=== PATIENT | male | born 1950 | race Caucasian/White ===

== ENCOUNTER → 2016-12-13 | Outpatient (CLI) | payer OTHER ==
[~2016-12-13] MED LIST: ACET-1138 PO; ACET-1311 PO; ASPEC325 PO; ASPI81TA28 PO; IBUP-103 PO; MELO7.5T5 PO; MISCCAP80 PO; MORP15TA19 PO; MULT-506 PO; PRAV20TA PO; PSYL55.43 PO; RXC5 PO
== END | disposition home or self-care (01) ==
LOC: C.LAB 14:32
PROVIDERS: ATTEND Orthopaedic Surgery Sports Medicine
DX: Z01.818 Encounter for other preprocedural examination (principal)

== ENCOUNTER 2017-01-08 09:48 | Inpatient (IN) | payer OTHER ==
[2016-12-13 15:43] LABS: BASO % 0.6 %; BASO ABS # 0.04 K/uL (0-0.2); COMPLETE YES; IG% 0.3 %; LYMPH % 25.7 %; LYMPH ABS # 1.76 K/uL (1.2-3.4); MEAN CELL VOLUME 84.6 fL (80-100); MEAN CORPUSCULAR HEMOGLOBIN 28.9 pg (25-34); MEAN CORPUSCULAR HGB CONC 34.2 g/dl (32-36); MEAN PLATELET VOLUME 10.3 fL (7.4-10.4); MONO % 9.6 %; NEUT % 62.8 %; PLATELET COUNT 246 K/uL (130-400); RED BLOOD COUNT 5.08 M/uL (4.7-6.1); WHITE BLOOD COUNT 6.85 K/uL (4.8-10.8)
[2016-12-13 15:58] LABS: PARTIAL THROMBOPLASTIN RATIO 0.9; PROTHROMBIN TIME (PATIENT) 10.7 SECONDS (9.0-12.0)
[2016-12-13 15:59] LABS: BLOOD UREA NITROGEN 16 mg/dl (7-18); BUN/CREATININE RATIO 17.7 (10-20); CALCIUM 8.9 mg/dl (8.5-10.1); CARBON DIOXIDE 28 mmol/L (21-32); CHLORIDE 104 mmol/L (98-107); CREATININE 0.93 mg/dl (0.60-1.40); GLUCOSE 98 mg/dl (70-99); POTASSIUM 4.4 mmol/L (3.5-5.1); SODIUM 140 mmol/L (136-145)
[2016-12-13 16:00] LABS: C-REACTIVE PROTEIN < 0.29 mg/dl (0-0.29)
[2016-12-28 15:23] VITALS: BMI 26.0
--- NOTE | 2017-01-02 10:12 | HISTORY & PHYSICAL EXAMINATION ---
DATE OF ADMISSION: 01/08/2017 CHIEF COMPLAINT: Left knee pain. HISTORY OF PRESENT ILLNESS: This is a 66-year-old gentleman now about 4 months out from his right knee replacement and would like to proceed with left knee replaced. He has got a long history of bilateral knee pain and discomfort. His right knee is doing well. Pain is much improved. Left knee is really limiting his activities. She describes global pain, increased with weightbearing. He has pain mostly on the medial side of his knee. He would like to proceed with left knee replacement. PAST MEDICAL HISTORY: Significant for: 1. Basal cell skin cancer. 2. Elevated cholesterol. 3. Knee arthritis. PAST SURGICAL HISTORY: 1. Right knee arthroscopy. 2. Right total knee replacement August 2016. ALLERGIES: None. CURRENT MEDICATIONS: Include: 1. Pravastatin 2. Baby Aspirin. 3. Multivitamin. 4. Meloxicam. 5. Desonide. SOCIAL HISTORY: A 66-year-old male. He is . From [place]. Two children. FAMILY HISTORY: Noncontributory. REVIEW OF SYSTEMS: Negative for diabetes, neurologic problems, vascular problems, bleeding disorders. Denies any chest pain, no shortness of breath. No history of DVT or PE. PHYSICAL EXAMINATION: GENERAL: Reveals a pleasant, middle-aged male. He looks to be in excellent health. HEAD, EYES, EARS, NOSE, AND THROAT EXAMINATION: Benign. NECK: Supple. No lymphadenopathy. LUNGS: Clear to auscultation. HEART: Regular rate and rhythm. ABDOMEN: Soft, nontender, nondistended. EXTREMITY EXAMINATION: Grossly neurovascularly intact except as follows: Examination of both knees reveals the patient walks independently. Examination of the right knee reveals well-healed incision. Appears to be minimal swelling. Good straight leg raise. Range of motion 0-125. No instability. Examination of the left knee reveals varus alignment to his knee. He has got bony hypertrophy medially. Small knee effusion. Range of motion is 5-120. No instability. X-RAYS: X-rays of his left knee reveal advanced left knee DJD. He has got complete loss of his medial joint space. He has got osteophytes in the medial femoral condyle and medial tibial plateau. He has got subchondral sclerosis. ASSESSMENT: A 66-year-old gentleman 4 months out from right total knee replacement with advanced left knee degenerative joint disease. He has failed conservative treatment and would like to have his left knee replaced. PLAN: We are going to take him to the operating room and do a left total knee replacement. The risks and benefits of this procedure were explained to the patient including but not limited to DVT, PE, , infection, neurologic injury, vascular injury, bleeding problem, pain, limited range of motion, stiffness, failure to relieve symptoms, incomplete relief of symptoms, need for further surgery in the future, fracture, leg length inequality, nerve palsy, etc. The patient understands and desires to proceed. Informed consent was obtained. The patient did have a chest x-ray before his previous surgery which was normal. EKG showed some sinus bradycardia with right axis deviation unchanged from 2008. Labs were all normal. He does know to hold his Mobic 10 days preop. He is planning to be discharged to home using [facility] home health program. I will see him back 2 weeks postop.
[2017-01-08] VITALS (7 sets, daily range): BP systolic 104–149; BP diastolic 60–85; PULSE 49–94; TEMP 36.3–36.9; O2SAT 95–98; Ht 177.8 cm; Wt 82.3 kg
[~2017-01-08] VITALS: Ht 177.8 cm; Wt 82.3 kg
[~2017-01-08 09:48] MED LIST changes: -ACET-1138 PO; +ACETAMINOPHEN 500 MG TAB PO SCH; -ASPEC325 PO; +BUPIVACAINE 0.5 % 5 MG/1 ML PF 10ML VIAL ONE; +BUPIVACAINE LIPOSOME 266 MG, BUPIVACAINE/EPINEPHRINE INJ 50 ML, SODIUM CHLORIDE 0.9% PF... INFIL SCH; +BUPIVACAINE/EPINEPHRINE 0.25% 1:200,000 30 ML VIAL ONE; +CEFAZOLIN 2000 MG/60 ML D5W 60 ML IV SCH; +DEXAMETHASONE SOD INJ 4 MG/ML VIAL ONE; +FAMOTIDINE 20 MG TAB PO SCH; +FENTANYL CITRATE INJ 50 MCG/1 ML 2 ML VIAL ONE; +GABAPENTIN 300 MG CAP PO SCH; +LACTATED RINGER'S 1000ML IV SCH; +LACTATED RINGER'S 500 ML IV SCH; +METOCLOPRAMIDE HCL 10 MG TAB PO SCH; +MIDAZOLAM HCL 1 MG/ML 2ML VIAL ONE; -MORP15TA19 PO; -MULT-506 PO; -RXC5 PO; +SCOPOLAMINE 1.5 MG TDSY TD SCH; +TRANEXAMIC ACID INJ 1,000 MG in SODIUM CHLORIDE 0.9% 100ML 100 ML IV SCH
--- NOTE | 2017-01-08 10:17 | History & Physical Bridge Note ---
H&P Re-Evaluation Bridge Note: I have examined the patient, reviewed the History & Physical and in the interval since the performance of the History & Physical I have noted the following changes of clinical significance: No changes noted
[2017-01-08] MEDS ORDERED: BUPIVACAINE/EPINEPHRINE 0.25% 1:200,000 30 ML VIAL ONE (10:26)
[2017-01-08] MEDS ORDERED: SODIUM CHLORIDE 0.9% PF 50 ML VIAL ONE (10:26)
[2017-01-08] MEDS ORDERED: BUPIVACAINE LIPOSOME 1/3% 266 MG/20 ML VIAL INFIL ONE (10:26)
[2017-01-08] MEDS ORDERED: BACITRACIN 50000 UNIT VIAL ONE (10:26)
[2017-01-08] MEDS ORDERED: ATROPINE SULFATE 0.1 MG/ML 5ML SYR IV PRN (11:00)
[2017-01-08] MEDS ORDERED: FENTANYL CITRATE INJ 50 MCG/1 ML 2 ML VIAL IV PRN (11:00)
[2017-01-08] MEDS ORDERED: EpHEDrine SULFATE INJ 50 MG/ML AMP IV PRN (11:00)
[2017-01-08] MEDS ORDERED: ONDANSETRON INJ 2 MG/ML 2 ML VIAL IV PRN ×2 (11:00→14:00)
[2017-01-08] MEDS ORDERED: PROPOFOL IV EMULSION 10 MG/ML 20 ML VIAL IV ONE (12:08)
--- NOTE | 2017-01-08 13:46 | [facility] Post Operative Brief Note ---
Immediate Operative Summary Operative Date Jan 08, 2017. Pre-Operative Diagnosis Advanced left knee degenerative joint disease Post-Operative Diagnosis Same as pre-operative diagnosis Procedure(s) Performed Left Total Knee Arthroplasty, Cemented Surgeon Dr. Messi Ventura Cloth Neutralizer Surgeon(s) Juan Schulte PA-C Estimated Blood Loss 50ml Findings Left Knee DJD Specimens A: Left knee bone and tissue Drains None Anesthesia Spinal Complication(s) None Disposition Recovery Room / PACU
[2017-01-08] MEDS ORDERED: MoRPHine SULFATE 2 MG/ML CARP IV PRN (14:00)
[2017-01-08] MEDS ORDERED: MAGNESIUM HYDROXIDE SUSP 30 ML UDC PO PRN (14:00)
[2017-01-08] MEDS ORDERED: ZOLPIDEM TARTRATE 5 MG TAB PO PRN (14:00)
[2017-01-08] MEDS ORDERED: BISACODYL 10 MG SUPP PR PRN (14:00)
[2017-01-08] MEDS ORDERED: METOCLOPRAMIDE HCL INJ 5 MG/ML 2 ML VIAL IV PRN (14:00)
[2017-01-08] MEDS ORDERED: TAMSULOSIN HCL 0.4 MG CAP PO PRN (14:00)
[2017-01-08] MEDS ORDERED: ALUMINUM/MAGNESIUM/SIMETH (MAALOX MAX) 30 ML UDC PO PRN (14:00)
[2017-01-08] MEDS ORDERED: OXYCODONE HCL IR 5 MG TAB (IMMEDIATE RELEASE) PO PRN (14:00)
[2017-01-08] MEDS ORDERED: SILVER SULFADIAZINE 1% CR 50 GM JAR EXT PRN (14:00)
[2017-01-08] MEDS ORDERED: DiphenhydrAMINE HCL 50 MG/ML VIAL IV PRN (14:00)
--- NOTE | 2017-01-08 14:24 | OPERATIVE REPORT ---
DATE OF OPERATION: 01/08/2017 PREOPERATIVE DIAGNOSIS: Left knee degenerative joint disease. POSTOPERATIVE DIAGNOSIS: Same. PROCEDURE PERFORMED: Left cemented posterior stabilized total knee arthroplasty. SURGEON: Dr. Messi Ventura. AIRCRAFT MAINTENANCE TECHNICIAN: Jeronimo Schulte PA-C. COMPLICATIONS: None. ESTIMATED BLOOD LOSS: 50 mL. FLUID REPLACEMENT: 600 mL crystalloid fluid replacement. ANESTHESIA: Spinal with adductor canal block. DRAINS: None. SPECIMENS: Left knee sent for pathology. TOURNIQUET TIME: 57 minutes at 300 mmHg. OPERATIVE INDICATIONS: The patient is a 66-year-old very active gentleman who has a long history of bilateral knee pain and discomfort. He had failed conservative care. He underwent a right knee replacement about 5 months ago and has done extremely well from this. He continues to be limited by left knee pain. He would like to proceed with left total knee arthroplasty. OPERATIVE FINDINGS: Operative findings revealed advanced left knee DJD. He had grade 4 [id number]-[id number] disease in all 3 compartments, most severe in the medial and patellofemoral compartments. He had eburnation medial femoral condyle. He had large osteophytes in the medial side of his knee. Large knee joint effusion with a fixed varus deformity to his knee. OPERATIVE IMPLANTS: Operative implants consist of: 1. Biomet Vanguard size 70 left posterior stabilized femoral component. 2. Biomet size 75 tibial tray. 3. A 12 mm posterior stabilized polyethylene insert. 4. A 31 x 8 all poly patella. OPERATION PROCEDURE: The patient was taken to the operating room, identified and placed on the operating table in supine position. All contact areas were appropriately padded. IV antibiotics were provided by anesthesia team. A spinal anesthetic and adductor canal block had been provided in the holding area. A García catheter was placed in sterile fashion. A left thigh tourniquet was then placed and the left lower extremity was then prepped and draped in usual sterile fashion. The left lower extremity was then elevated and exsanguinated with use of an Esmarch and tourniquet was placed at 300 mmHg. An anterior approach of the left knee was then performed through a longitudinal incision centered over the patella. Sharp dissection was carried down through the subcutaneous tissues down with the extensor mechanism. A medial parapatellar arthrotomy incision was made. Some subperiosteal dissection was carried out medially. I did pretty extensive dissection medially due to his fixed varus deformity to release the medial side. The fat pad was resected from beneath the patellar tendon. The lateral patellofemoral ligament was released. The patella was everted and the knee was flexed. The osteophytes were taken off the distal femur. The ACL and PCL were then released from the distal femur and the tibia subluxated anteriorly. The external tibial alignment jig was then placed in the anterior face of the tibia and adjusted 16 mm medially. The proximal tibial cut was made to remove about a millimeter bone from the most deficient aspect of the medial and posteromedial tibial plateau. Tibia was sized to a size 75. Some osteophytes were taken off medial and posteromedially. Attention was then drawn to the femur. The distal femur was entered with a sharp drill. Intramedullary canal was suctioned. A left 6 degree valgus cutting guide was placed and the distal femoral cutting block was pinned in place. Distal femoral cut was made to take an additional 3 mm of bone off the distal femur. The femur was then sized to a size 70. We did downsize this slightly. The AP cutting block was pinned parallel to the epicondylar axis, which was 60 degrees of external rotation. He had a fairly large medial femoral condyle relative to the lateral side. The anterior cut, anterior chamfer cut, posterior cut, posterior chamfer cuts were made. Box cutting guide was placed and adjusted slightly laterally and the box cut was made. The knee was flexed. The remnants of the medial and lateral menisci were excised. The osteophytes were taken off the posterior aspect of the femur. Trial femoral component was placed. Tibial tray was pinned in maximum external rotation and drill and stem punch were used to create defect in proximal tibia for the tibial tray. The knee was then trialed and the 12 mm insert fit most appropriately. Attention was then drawn to the patella. The patella was cleaned of all soft tissues. The patella thickness measured 25 mm and was cut down to 15. It was sized to a size 31 patella. Lateral osteophyte was removed. Patella button was placed. The knee was taken through range of motion. Patella tracked nicely with the no thumbs test. Attention was then drawn toward placement of the permanent components. All trial components were removed. Bone plug was placed in the distal femur to limit blood loss. A double batch of Palacos G cement was mixed. A left size 70 posterior stabilized femoral component, size 75 tibial tray, a 12 mm posterior stabilized polyethylene insert, and a 31 x 8 all poly patella were then cemented in place. The knee was brought out into full extension until the cement hardened. A final cement check was then performed. The pericapsular tissues were injected with 100 mL of a combination of 20 mL Exparel, 30 mL normal saline, 50 mL of 0.25% Marcaine with epinephrine. The patient did receive 1 gram of tranexamic acid. The tourniquet was let down for final tourniquet time of 57 minutes. Hemostasis was assured with use of electrocautery. The wound was once again irrigated. The extensor mechanism was then closed with a combination of #1 PDS and #1 Vicryl suture in a [id number] fashion. Extensor mechanism was checked and found to be intact. The subcutaneous tissues were then closed with 2-0 Dexon suture in a buried interrupted fashion. Skin was closed with skin lilian. The leg was then cleaned and dried and a sterile dressing of Xeroform, 4 x 4s, sterile cast padding and Santosh bandage were applied. The patient was then transferred to the recovery room in stable condition. The patient tolerated the procedure well with no complication. All needle and sponge counts were correct at the end of the operation. I attest to the content of the Intraoperative Record and any orders documented therein. Any exceptio ns are noted below.
--- NOTE | 2017-01-08 15:02 | DIAGNOSTIC IMAGING REPORT ---
LEFT KNEE 2 VIEWS History: Left total knee arthroplasty. Degenerative arthritis. Postop. FINDINGS: The patient is status post a left total knee arthroplasty. The hardware is intact. No fracture or dislocation. Skin lilian are in place. IMPRESSION: Left total knee arthroplasty. No evidence for hardware complication. Electronically signed by: Raghu Torres M.D. 01/08/2017 3:00 PM Dictated Date/Time: 01/08/2017 3:00 PM
[2017-01-08] MEDS: CHECK SCOPOLAMINE PATCH PLACEMENT SCH ×2 (15:22→23:34)
[2017-01-08] MEDS: D5W AND 1/2NSS + 20MEQ KCL 1,000 ML IV SCH ×2 (16:00→23:34)
[2017-01-08] MEDS: KETOROLAC TROMETHAMINE 15 MG/ML VIAL IV. SCH ×2 (16:01→21:41)
--- NOTE | 2017-01-08 16:22 | Anesthesiology Progress Note ---
Anesthesia Post Op Note Date & Time Jan 08, 2017 at 16:23 Vital Signs Pain Intensity: 0.0 Vital Signs Past 12 Hours Date Time Temp Pulse Resp B/P Pulse Ox O2 Delivery O2 Flow Rate FiO2 01/08/17 15:57 36.3 94 16 128/77 96 Nasal Cannula 2.0 01/08/17 15:25 36.4 60 16 120/75 97 Nasal Cannula 2.0 01/08/17 15:23 Nasal Cannula 2.0 01/08/17 14:50 Nasal Cannula 2.0 01/08/17 14:50 36.4 54 14 104/60 95 Nasal Cannula 2.0 01/08/17 14:30 53 14 100/49 98 Nasal Cannula 2 01/08/17 14:20 36.8 54 21 110/63 97 Nasal Cannula 2 01/08/17 14:10 58 14 102/63 95 Nasal Cannula 2 01/08/17 14:00 65 21 99/59 97 Nasal Cannula 2 01/08/17 13:52 36.0 63 19 118/61 94 Nasal Cannula 2 01/08/17 10:10 36.8 64 18 149/83 97 Room Air Notes Mental Status: alert / awake / arousable, participated in evaluation Pt Amnestic to Procedure: Yes Nausea / Vomiting: adequately controlled Pain: adequately controlled Airway Patency, RR, SpO2: stable & adequate BP & HR: stable & adequate Hydration State: stable & adequate Neuraxial Anesthesia: was administered, sensory block is resolving Anesthetic Complications: no major complications apparent
[2017-01-08] MEDS: FERROUS GLUCONATE 324 MG TAB PO SCH (18:25)
[2017-01-08] MEDS ORDERED: TRANEXAMIC ACID INJ 1,000 MG in SODIUM CHLORIDE 0.9% 100ML 100 ML IV SCH (20:00)
[2017-01-08] MEDS: CEFAZOLIN IV 2,000 MG in DEXTROSE 5% 50ML 50 ML IV SCH (20:10)
[2017-01-08] MEDS: DOCUSATE SODIUM 100 MG CAP PO SCH (20:54)
[2017-01-08] MEDS: PRAVASTATIN SOD 40 MG TAB PO SCH (20:54)
[2017-01-08] MEDS: ASPIRIN 325 MG ECTAB PO SCH (20:54)
[2017-01-08] MEDS: TAPENTADOL ER 50 MG TABCR PO SCH (20:54)
[2017-01-08] MEDS: ACETAMINOPHEN 500 MG TAB PO SCH (21:41)
[2017-01-09 03:20] VITALS: BP 104/72; PULSE 56; TEMP 36.4; O2SAT 95
[2017-01-09] MEDS: CEFAZOLIN IV 2,000 MG in DEXTROSE 5% 50ML 50 ML IV SCH (03:40)
[2017-01-09] MEDS: KETOROLAC TROMETHAMINE 15 MG/ML VIAL IV. SCH ×4 (03:40→21:11)
[2017-01-09 05:56] LABS: MEAN CELL VOLUME 84.5 fL (80-100); MEAN CORPUSCULAR HEMOGLOBIN 29.6 pg (25-34); PLATELET COUNT 197 K/uL (130-400); RED BLOOD COUNT 4.26 M/uL (4.7-6.1); WHITE BLOOD COUNT 10.61 K/uL (4.8-10.8)
[2017-01-09] MEDS: ACETAMINOPHEN 500 MG TAB PO SCH ×3 (05:56→21:13)
[2017-01-09 06:21] LABS: BUN/CREATININE RATIO 12.8 (10-20); CALCIUM 8.3 mg/dl (8.5-10.1); CREATININE 0.96 mg/dl (0.60-1.40); POTASSIUM 4.4 mmol/L (3.5-5.1)
[2017-01-09 07:35] VITALS: BP 122/82; PULSE 52; TEMP 36.4; O2SAT 94
[2017-01-09] MEDS: CHECK SCOPOLAMINE PATCH PLACEMENT SCH ×3 (07:57→23:45)
[2017-01-09] MEDS: D5W AND 1/2NSS + 20MEQ KCL 1,000 ML IV SCH (07:57)
[2017-01-09] MEDS: DOCUSATE SODIUM 100 MG CAP PO SCH ×2 (08:25→21:07)
[2017-01-09] MEDS: FERROUS GLUCONATE 324 MG TAB PO SCH ×3 (08:25→18:50)
[2017-01-09] MEDS: ASPIRIN 325 MG ECTAB PO SCH ×2 (08:26→21:07)
[2017-01-09] MEDS: MULTIVITAMIN TAB PO SCH (08:26)
[2017-01-09] MEDS: PANTOprazole SOD 40 MG TAB PO SCH (08:26)
[2017-01-09] MEDS: LACTOBACILLUS ACIDOPHILUS (FLORANEX) TAB PO SCH (08:26)
[2017-01-09] MEDS: PSYLLIUM 58.6% PWD PACK S\\F PO SCH (08:27)
[2017-01-09] MEDS ORDERED: MORP15TA19 PO (08:28)
[2017-01-09] MEDS ORDERED: ASPEC325 PO (08:28)
[2017-01-09] MEDS ORDERED: ACET-1138 PO (08:28)
[2017-01-09] MEDS ORDERED: RXC5 PO (08:28)
[2017-01-09] MEDS: TAPENTADOL ER 50 MG TABCR PO SCH ×2 (08:30→21:10)
--- NOTE | 2017-01-09 08:30 | Discharge Instructions ---
Discharge Instructions Date of Service Jan 09, 2017. Admission Reason for Admission: Left Knee Degenerative Joint Disease Discharge Discharge Diagnosis / Problem: Left Knee Replacement Discharge Goals Goal(s): Decrease discomfort, Improve function, Increase independence, Improve disease control, Therapeutic intervention Activity Recommendations Activity Limitations: per Instructions/Follow-up section Weightbearing Status: Left weightbearing . Instructions / Follow-Up Instructions / Follow-Up ACTIVITY RECOMMENDATIONS: Physical Therapy: * You will go to physical therapy three times each week for four to six weeks after your surgery in order to regain your knee range of motion and to retrain your knee to work properly. * It is just as important to make sure you are getting your knee perfectly straight as it is to regain your knee bend. * Taking a pain pill an hour before therapy can help you have a more productive and comfortable therapy session. Home Exercise: * You were shown a series of exercises (heel props, heel slides, etc.) in the hospital. Do these exercises three to four times each day including the exercises you were shown in physical therapy. Walking: * Get up and walk several times each day. For the first four weeks, try not to stand or walk for more than one hour at a time. If you do stand or walk for more than one hour, you will not hurt anything, but your knee and leg will likely swell. * As you feel comfortable, you may change from the walker or crutches to a cane and then to independent walking. MEDICATIONS: New Medicine: * You will likely be taking one or more of these medications: 1. MS Contin - A long-acting pain medication. Take 1 tablet twice a day for the first ten days to decrease your baseline level of pain. 2. Oxycodone - A quick and shorter-acting pain medication. Take one to two tablets every four to six hours to lessen your pain. 3. Aspirin - Thins your blood to lessen the chance of forming a blood clot. * The most common side effects of pain medicine and iron are nausea and constipation. If nausea or constipation is too much of a problem or if you have any questions about your new medicines or doses, call [facility] at . We will try to help you manage these issues. VERY IMPORTANT TO READ AND REVIEW" Pain: * The immediate post-operative period after knee replacement surgery is often quite painful. * You are given a prescription for pain medicine. You should take it, as directed, when you need it, especially before physical therapy and before going to bed. Pain that interferes with sleep is very common and can last several months. * You will likely need pain medicine for the first four to six weeks. It will not stop all of the pain. The pain will lessen and as you feel better, you may change to milder pain medicine such as Tylenol. * The most common side effects of pain medicine are nausea and constipation, so don't take more than you need. SPECIAL CARE INSTRUCTIONS: TEDs/Elastic Stockings: * The white elastic stockings help limit swelling and prevent blood clots from forming in your legs. The more you wear them, the more they work. * Wear them for six weeks after knee replacement surgery and four weeks after partial knee replacement. Prevention of Infection: * Take antibiotics one hour before any dental cleaning, dental work, urological procedure, gastrointestinal procedure or any invasive surgery in order to prevent your new joint from getting infected. * You may get the antibiotics from the doctor performing the procedure or you may call our office at before and we will call in a prescription to the pharmacy of your choice. Things to Watch For: * Drainage from the incision site that occurs more than one week after your surgery. * Severely increased knee/leg pain or swelling. * Increased redness at the incision site. * Fever above 102 degrees Fahrenheit. * Unusual chest pain or shortness of breath. * Unusual pain or burning with urination. Call [facility] at with any of the above problems or if you have any questions about your medicines or recovery. FOLLOW UP VISIT: Make an appointment to see your doctor for approximately two weeks after surgery for a progress check and staple removal by calling the office at . Current Hospital Diet Patient's current hospital diet: Regular Diet Discharge Diet Recommended Diet: Regular Diet Procedures Procedures Performed: Left Total Knee Arthroplasty, Cemented Pending Studies Studies pending at discharge: no Medical Emergencies . Who to Call and When: Medical Emergencies: If at any time you feel your situation is an emergency, please call [phone] immediately. . Non-Emergent Contact Non-Emergency issues call your: Surgeon . "Provider Documentation" section prepared by Messi Ventura. VTE Core Measure Inpt VTE Proph given/why not?: Other Anticoagulation, T.E.D. Stockings, SCD's
--- NOTE | 2017-01-09 08:38 | Anesthesiology Progress Note ---
Anesthesia Post Op Note Date & Time Jan 09, 2017 at 08:37 Vital Signs Pain Intensity: 0.0 Vital Signs Past 12 Hours Date Time Temp Pulse Resp B/P Pulse Ox O2 Delivery O2 Flow Rate FiO2 01/09/17 07:35 36.4 52 20 122/82 94 Room Air 01/09/17 07:30 Room Air 01/09/17 03:20 36.4 56 16 104/72 95 Room Air 01/08/17 23:10 36.3 53 16 115/66 95 Room Air Notes Mental Status: alert / awake / arousable, participated in evaluation Pt Amnestic to Procedure: Yes Nausea / Vomiting: adequately controlled Pain: adequately controlled Airway Patency, RR, SpO2: stable & adequate BP & HR: stable & adequate Hydration State: stable & adequate Neuraxial Anesthesia: sensory block resolved Anesthetic Complications: no major complications apparent
[2017-01-09 10:29] VITALS: O2SAT 94
[2017-01-09 11:59] VITALS: BP 146/88; PULSE 60; TEMP 36.5; O2SAT 98
--- NOTE | 2017-01-09 12:16 | PROGRESS NOTE ---
DATE: 01/09/2017 SUBJECTIVE: 66-year-old gentleman postop day #1 from a left knee replacement. He is doing well. He rates his pain at worst at a 3/10. No chest pain or shortness of breath. Not feeling dizzy or lightheaded. OBJECTIVE: VITAL SIGNS: Temperature 36.5. Vital signs stable. PHYSICAL EXAMINATION: GENERAL: Reveals a healthy, pleasant, middle-aged male. He is sitting in a bedside chair eating lunch. He looks comfortable. LUNGS: Clear to auscultation. HEART: Regular rate and rhythm. ABDOMEN: Soft, nontender, nondistended. EXTREMITIES: Grossly neurovascularly intact except as follows: Examination of the left lower extremity reveals the dressing to be in place. Slight bit of bloody drainage. He can dorsiflex and plantarflex his foot appropriately. He is neurologically intact. LABORATORY DATA: Hemoglobin 12.6, hematocrit 36.0. Electrolytes are stable. ASSESSMENT: 66-year-old gentleman postop day #1 from left knee replacement, doing well. His pain is controlled. He is neurologically intact. PLAN: 1. DVT prophylaxis including thigh-high TEDs, SCDs, and aspirin twice a day. 2. PT/OT. Weightbearing as tolerated. Left total knee protocol. 3. Pain control. Doing well with current pain regimen. 4. Disposition: Plan to discharge to home with some home health once adequately recovered.
[2017-01-09 15:15] VITALS: BP 157/74; PULSE 68; TEMP 36.4; O2SAT 97
[2017-01-09] MEDS: PRAVASTATIN SOD 40 MG TAB PO SCH (22:30)
[2017-01-09 23:00] VITALS: BP 135/76; PULSE 63; TEMP 36.7; O2SAT 95
[2017-01-10] MEDS: KETOROLAC TROMETHAMINE 15 MG/ML VIAL IV. SCH (03:44)
[2017-01-10] MEDS: ACETAMINOPHEN 500 MG TAB PO SCH (05:34)
[2017-01-10 06:21] VITALS: BP 124/73; PULSE 57; TEMP 36.5; O2SAT 96
[2017-01-10] MEDS: LACTOBACILLUS ACIDOPHILUS (FLORANEX) TAB PO SCH (07:09)
[2017-01-10] MEDS: TAPENTADOL ER 50 MG TABCR PO SCH (07:09)
[2017-01-10] MEDS: PSYLLIUM 58.6% PWD PACK S\\F PO SCH (07:09)
[2017-01-10] MEDS: FERROUS GLUCONATE 324 MG TAB PO SCH (07:09)
[2017-01-10] MEDS: MULTIVITAMIN TAB PO SCH (07:09)
[2017-01-10] MEDS: PANTOprazole SOD 40 MG TAB PO SCH (07:10)
--- NOTE | 2017-01-10 07:36 | PROGRESS NOTE ---
DATE: 01/10/2017 SUBJECTIVE: A 66-year-old gentleman postop day 2 from a knee replacement. He is doing well. Pain is controlled. No chest pain or shortness of breath. Not feeling dizzy or lightheaded. OBJECTIVE: VITAL SIGNS: Temperature is 36.5. Vital signs stable. GENERAL: Healthy, pleasant middle-aged male. He is sitting up in his bedside chair eating breakfast. Looks comfortable. LUNGS: Clear to auscultation. HEART: Regular rate and rhythm. ABDOMEN: Soft, nontender, nondistended. EXTREMITIES: Grossly neurovascularly intact except as follows: Examination of the left lower extremity reveals the dressing to be clean, dry and intact. Fairly minimal swelling. He is neurologically intact. ASSESSMENT: A 66-year-old gentleman postop day 2 from a left knee replacement, doing well. Pain is controlled. PLAN: 1. DVT prophylaxis including thigh-high TEDs, SCDs, and aspirin twice a day. 2. PT/OT. Weightbearing as tolerated. Left total knee protocol. 3. Pain control, doing well with current pain regimen. 4. Disposition: Plan to discharge to home with home health after therapy today.
[2017-01-10 09:03] VITALS: BP 124/73; PULSE 57; TEMP 36.5; O2SAT 96
[2017-01-10] MEDS: ASPIRIN 325 MG ECTAB PO SCH (09:12)
[2017-01-10] MEDS: DOCUSATE SODIUM 100 MG CAP PO SCH (09:12)
--- NOTE | 2017-01-16 15:39 | DISCHARGE SUMMARY ---
ADMITTING PHYSICIAN AND SURGEON: Dr. Ventura. ADMITTING DIAGNOSIS: Left knee degenerative joint disease. SURGERY PERFORMED: Left total knee arthroplasty. SECONDARY DIAGNOSES: Includes basal cell skin cancer, elevated cholesterol, knee arthritis. HISTORY AND PHYSICAL EXAMINATION: Well documented in the patient's chart. HOSPITAL COURSE: The patient was admitted on 01/08/2017 underwent total knee arthroplasty. He tolerated the procedure well. There were no complications. He was transferred to the PACU postoperatively and later to the orthopedic floor for further care. He was given Ancef for antibiotic prophylaxis, TYREE stockings, SCDs and aspirin for DVT prophylaxis. Hemoglobin, hematocrit and vital signs were monitored during his hospital stay and remained stable, did not require any blood transfusions. There were no complications. By postoperative day 2, he was tolerating a general diet, pain was controlled with oral pain medicine. He was participating in physical therapy and had no signs or symptoms of deep vein thrombosis. On postoperative day 2, he was discharged home and set up with home health services, given printed discharge instructions including prescriptions for Extra-Strength Tylenol, aspirin 325 mg b.i.d., MS Contin and oxycodone. Continue his home medicines with the exception of home doses of Tylenol and aspirin which were changed. Continue physical therapy, weightbearing as tolerated. TYREE stockings. Follow up in 10-12 days or sooner if there are problems or concerns.
== END 2017-01-10 09:43 | disposition home health service (06) | DRG 470 ==
LOC: ENRESERVDT → ENRESERVTM → C.ACU 09:48 → C.3E 10:20
PROVIDERS: ADMIT Orthopaedic Surgery Sports Medicine; ATTEND Orthopaedic Surgery Sports Medicine
PROC: 0SRD0J9 Replacement of Left Knee Joint with Synthetic Substitute, Cemented, Open Approach (ICD-10-PCS; principal; 2017-01-08 12:30)
DX: M17.12 Unilateral primary osteoarthritis, left knee (principal); Z96.651 Presence of right artificial knee joint; E78.00 Pure hypercholesterolemia, unspecified; Z79.899 Other long term (current) drug therapy; Z79.82 Long term (current) use of aspirin; Z85.828 Personal history of other malignant neoplasm of skin

== ENCOUNTER → 2017-04-25 | Outpatient (CLI) | payer OTHER ==
[~2017-04-25] MED LIST changes: +ACET-1138 PO; -ACET-1311 PO; -ACETAMINOPHEN 500 MG TAB PO SCH; +ASPEC325 PO; -ASPI81TA28 PO; -BUPIVACAINE 0.5 % 5 MG/1 ML PF 10ML VIAL ONE; -BUPIVACAINE LIPOSOME 266 MG, BUPIVACAINE/EPINEPHRINE INJ 50 ML, SODIUM CHLORIDE 0.9% PF... INFIL SCH; -BUPIVACAINE/EPINEPHRINE 0.25% 1:200,000 30 ML VIAL ONE; -CEFAZOLIN 2000 MG/60 ML D5W 60 ML IV SCH; -DEXAMETHASONE SOD INJ 4 MG/ML VIAL ONE; -FAMOTIDINE 20 MG TAB PO SCH; -FENTANYL CITRATE INJ 50 MCG/1 ML 2 ML VIAL ONE; -GABAPENTIN 300 MG CAP PO SCH; -LACTATED RINGER'S 1000ML IV SCH; -LACTATED RINGER'S 500 ML IV SCH; -METOCLOPRAMIDE HCL 10 MG TAB PO SCH; -MIDAZOLAM HCL 1 MG/ML 2ML VIAL ONE; +RXC5 PO; -SCOPOLAMINE 1.5 MG TDSY TD SCH; -TRANEXAMIC ACID INJ 1,000 MG in SODIUM CHLORIDE 0.9% 100ML 100 ML IV SCH
== END ==
LOC: C.PATHSPEC 13:14
PROVIDERS: ATTEND Dermatology
DX: C44.519 Basal cell carcinoma of skin of other part of trunk (principal)

== ENCOUNTER → 2017-05-16 | Outpatient (CLI) | payer OTHER | END | disposition home or self-care (01) | LOC: C.PATHSPEC 16:35 | PROVIDERS: ATTEND Dermatology | DX: C44.519 Basal cell carcinoma of skin of other part of trunk (principal) ==

== ENCOUNTER → 2017-10-15 | Outpatient (CLI) | payer OTHER ==
[2017-10-15 13:18] LABS: PROSTATE SPECIFIC ANTIGEN 1.11 ng/ml (0.000-4.000)
== END | disposition home or self-care (01) ==
LOC: C.LABMFLN 07:41
PROVIDERS: ATTEND Family Medicine
DX: E78.5 Hyperlipidemia, unspecified (principal); Z12.5 Encounter for screening for malignant neoplasm of prostate; M15.9 Polyosteoarthritis, unspecified

== ENCOUNTER → 2017-12-10 | Outpatient (CLI) | payer OTHER | END | disposition home or self-care (01) | LOC: C.PATHSPEC 17:19 | PROVIDERS: ATTEND Dermatology | DX: C44.91 Basal cell carcinoma of skin, unspecified (principal); L57.0 Actinic keratosis ==

== ENCOUNTER → 2018-01-22 | Outpatient (CLI) | payer OTHER | END | disposition home or self-care (01) | LOC: C.LABSPEC 17:25 | PROVIDERS: ATTEND Dermatology | DX: B35.1 Tinea unguium (principal) ==